=== PATIENT | male | born 1965 ===

== ENCOUNTER 2024-05-31 11:16 | Outpatient (CLI) | payer BC, SELFPAY ==
--- NOTE | 2024-05-31 11:15 | RT.EKG_ITS ---
APPROVED REPORT Exam: Resting ECG Reason for Exam: Baseline needed Patient Location: O HR:50 bpm ECG Measurements Heart Rate 50 AXIS WV 261 P 62 QRSd 107 QRS 77 QT 443 T 67 QTc 404 Conclusion Sinus rhythm...normal P axis, V-rate 50- 99 Prolonged WV interval...WV >210, V-rate 50- 90
== END 2024-05-31 11:17 | disposition home or self-care (01) ==
LOC: DI.CARD 11:17
PROVIDERS: PCP Family Medicine; Visit Provider Internal Medicine Cardiovascular Disease
DX: I48.91 Unspecified atrial fibrillation (principal)
CPT/HCPCS: 93010

== ENCOUNTER 2025-06-02 11:05 | Outpatient (CLI) | payer BC, SELFPAY ==
--- NOTE | 2025-06-02 11:00 | RT.EKG_ITS ---
APPROVED REPORT Exam: Resting ECG Reason for Exam: follow up needed Patient Location: O HR:60 bpm ECG Measurements Heart Rate 60 AXIS WV 209 P 35 QRSd 104 QRS 55 QT 421 T 39 QTc 421 Conclusion Sinus rhythm...normal P axis, V-rate 50- 99 Borderline prolonged WV interval...WV >202, V-rate 50- 90
== END 2025-06-02 11:06 | disposition home or self-care (01) ==
LOC: DI.CARD 11:06
PROVIDERS: PCP Family Medicine; Visit Provider Internal Medicine Cardiovascular Disease
DX: I48.0 Paroxysmal atrial fibrillation (principal)
CPT/HCPCS: 93010